=== PATIENT | female | born 1995 | race Two or more races ===

== ENCOUNTER 2018-03-29 19:34 | Emergency (ER) | payer MEDICAID ==
[~2018-03-29] VITALS: Ht 149.9 cm; Wt 49.9 kg
[2018-03-29 20:27] VITALS: BP 128/68
--- NOTE | 2018-03-29 20:30 | NUR ---
BIBSELF C/O BILATERAL BREAST PAIN, PT STATES GAVE 2 WKS AGO AND . PT AOX3 RR EVEN AND UNLABORED. NO SOB NOTED. NAD NOTED. NO NVD AT THIS TIME. PT GOWNED AND PLACED ON MONITOR WAITING FOR MD RAGLAND.
[2018-03-29] MEDS ORDERED: ACETAMINOPHEN ES 500 MG TABLET ONE (20:49)
[2018-03-29] MEDS ORDERED: ACETAMINOPHEN 325 MG TABLET PO ONE (21:00)
== END 2018-03-29 20:53 | disposition home or self-care (01) ==
LOC: ER 19:36
DX: O92.79 Other disorders of lactation (principal); O90.89 Other complications of the puerperium, not elsewhere classified
CPT/HCPCS: 99283; A4606; Z7610

== ENCOUNTER 2020-03-15 12:04 | Emergency (ER) | payer MEDICAID ==
[~2020-03-15] VITALS: Ht 152.4 cm; Wt 53.1 kg
--- NOTE | 2020-03-15 12:15 | NUR ---
lac on the neck s/p glass fell on her neck yesterday 4/10 pain scale. Patient a/ox4, breathing even and unlabored, no bleeding noted. Wound is purple. Dr. Restrepo at bedside for eval.
[2020-03-15] MEDS ORDERED: TDAP [DIPH/PERTUSSIS/TET] 0.5 ML VIAL IM ONE (12:30)
--- NOTE | 2020-03-15 13:25 | NUR ---
Patient discharged to home in stable condition. Written and verbal after care instructions given. Patient verbalizes understanding of instruction.
[2020-03-15 13:26] VITALS: BP 131/80
== END 2020-03-15 13:26 | disposition home or self-care (01) ==
LOC: ER 12:10
DX: S11.81XA Laceration without foreign body of other specified part of neck, initial encounter (principal); W25.XXXA Contact with sharp glass, initial encounter; Y93.E8 Activity, other personal hygiene; Y92.89 Other specified places as the place of occurrence of the external cause; Y99.8 Other external cause status
CPT/HCPCS: 70360-TC; 84703-TC